=== PATIENT | male | born 1950 | race African-American/Black ===

== ENCOUNTER 2017-05-05 06:55 | Inpatient (IN) | payer OTHER ==
[2017-04-27 09:24] LABS: HEMATOCRIT 33.9 % (37.9-51.0); HEMOGLOBIN 11.4 g/dL (13.5-17.0); HGB HCT DIFFERENCE 0.3; MEAN CORPUSCULAR HEMOGLOBIN 30.3 pg (27.0-33.4); MEAN CORPUSCULAR HGB CONC 33.7 g/dL (32.0-36.0); MEAN CORPUSCULAR VOLUME 90 fl (80-97); RED BLOOD COUNT 3.78 10^6/uL (4.35-5.55); RED CELL DISTRIBUTION WIDTH 16.5 % (11.5-14.0); WHITE BLOOD COUNT 6.2 10^3/uL (4.0-10.5)
--- NOTE | 2017-04-27 09:32 | RADIOLOGY REPORT (SQ) ---
EXAM DESCRIPTION: CHEST PA/LATERAL COMPLETED DATE/TIME: 04/27/2017 9:16 am REASON FOR STUDY: PRE-OP COMPARISON: None. EXAM PARAMETERS: NUMBER OF VIEWS: two views TECHNIQUE: Digital Frontal and Lateral radiographic views of the chest acquired. RADIATION DOSE: NA LIMITATIONS: none FINDINGS: LUNGS AND PLEURA: No opacities, masses or pneumothorax. No pleural effusion. MEDIASTINUM AND HILAR STRUCTURES: No masses or contour abnormalities. HEART AND VASCULAR STRUCTURES: Heart normal size. No evidence for failure. BONES: No acute findings. HARDWARE: Clips right upper quadrant post cholecystectomy OTHER: No other significant finding. IMPRESSION: NO SIGNIFICANT RADIOGRAPHIC FINDING IN THE CHEST. TECHNICAL DOCUMENTATION: JOB ID: [id number] [employer]- All Rights Reserved
[2017-04-27 09:34] LABS: APPEARANCE,URINE CLOUDY; BILIRUBIN,URINE NEGATIVE (NEGATIVE); GLUCOSE, URINE NEGATIVE (NEGATIVE); KETONES,URINE NEGATIVE (NEGATIVE); LEUKOCYTE ESTERASE,URINE LARGE (NEGATIVE); NITRITE,URINE NEGATIVE (NEGATIVE); PROTEIN,URINE 100 mg/dL (NEGATIVE); URINE SPECIFIC GRAVITY 1.011; UROBILINOGEN,URINE NEGATIVE mg/dL (<2.0)
[2017-04-27 09:45] LABS: ANION GAP 19 (5-19); BLOOD UREA NITROGEN 41 mg/dL (7-20); CALCIUM 9.6 mg/dL (8.4-10.2); CARBON DIOXIDE 26 mmol/L (22-30); CHLORIDE 99 mmol/L (98-107); CREATININE RESULT 7.32 mg/dL (0.52-1.25); GLUCOSE 97 mg/dL (75-110); POTASSIUM 4.6 mmol/L (3.6-5.0); SODIUM 143.5 mmol/L (137-145)
--- NOTE | 2017-04-27 10:28 | EKG REPORT ---
SEVERITY:- NORMAL ECG - SINUS RHYTHM : Confirmed by: Jaylene Sanchez 27-Apr-2017 10:27:21
[~2017-05-05 06:55] MED LIST: BUPIVACAINE INJ/PF LIPOSOME/PF 266 MG/20 ML SDV IJ PRN; CLINDAMYCIN 600 MG/D5W RTU 600 MG/50 ML RTUPB IV PRN; IBUPROFEN 800 MG/NS 250 ML IV PRN; LANSOPRAZOLE 15 MG TAB.RAP.DR PO PRN; LIDOCAINE 0.5% INJ-PF (5 MG/ML) 50 ML SDV SUBCUT PRN; NORMAL SALINE 1000 ML (RENAL PATIENTS) IV PRN; OXYCODONE HCL SR 10 MG TABLET PO PRN; VANCOMYCIN HCL 1,000 MG in DEXTROSE 5%-WATER 250 ML IV PRN
[2017-05-05] MEDS ORDERED: THROMBIN (BOVINE) 5000 UNIT EPITAXIS KIT ONE (08:58)
[2017-05-05] MEDS ORDERED: THROMBIN (BOVINE) TOPICAL 20000 UNIT VIAL ONE (08:58)
[2017-05-05] MEDS ORDERED: BUPIVACAINE INJ/PF LIPOSOME/PF 266 MG/20 ML SDV ONE (08:58)
[2017-05-05] MEDS ORDERED: HYDROMORPHONE HCL INJ/PF 2 MG/ML AMPULE ONE (08:59)
[2017-05-05] MEDS ORDERED: MIDAZOLAM 2 MG/2 ML INJ ONE (08:59)
[2017-05-05] MEDS ORDERED: FENTANYL CITRATE INJ/PF 100 MCG/2 ML AMPUL ONE (08:59)
[2017-05-05] MEDS ORDERED: ONDANSETRON HCL INJ/PF 4 MG/2 ML SDV ONE (09:00)
[2017-05-05] MEDS ORDERED: TRANEXAMIC ACID INJ/PF 1,000 MG/10 ML SDV IV ONE ×2 (09:00→13:00)
[2017-05-05] MEDS ORDERED: EPHEDRINE SULFATE INJ 50 MG/1 ML AMPULE ONE (09:00)
[2017-05-05] MEDS ORDERED: PROPOFOL INJ 200 MG/20 ML VIAL IV ONE (09:00)
[2017-05-05] MEDS ORDERED: DIPHENHYDRAMINE HCL 50 MG/ML VIAL IV PRN ×2 (10:28→10:42)
[2017-05-05] MEDS ORDERED: FENTANYL CITRATE INJ/PF 100 MCG/2 ML AMPUL IV PRN ×3 (10:28)
[2017-05-05] MEDS ORDERED: MEPERIDINE HCL/PF INJ 25 MG/1 ML DISP.SYRIN IV PRN (10:28)
[2017-05-05] MEDS ORDERED: ONDANSETRON HCL INJ/PF 4 MG/2 ML SDV IV PRN (10:28)
[2017-05-05] MEDS ORDERED: (PENDING PHARMACY ID) (Sevelamer Carbonate [Renvela] 800 MG) PO PRN (10:41)
[2017-05-05] MEDS ORDERED: (PENDING PHARMACY ID) (Sildenafil Citrate [Viagra] 100 MG) PO PRN (10:41)
[2017-05-05] MEDS ORDERED: (PENDING PHARMACY ID) (Zolpidem Tartrate [Ambien] 10 MG) PO PRN (10:41)
--- NOTE | 2017-05-05 10:41 | Operative Report ---
Operative Report DATE OF SURGERY: 05/05/17 PREOPERATIVE DIAGNOSIS: Right hip arthritis OPERATION: Right hip arthroplasty SURGEON: NOAH HAMILTON ANESTHESIA: GA TISSUE REMOVED OR ALTERED: Bone to pathology ESTIMATED BLOOD LOSS: 100 PROCEDURE: Implants used: Femur: [place] Accolade 2 size 5 stem Acetabular shell: 56 mm hemispherical shell Liner: 36 mm flat cross-linked polyethylene liner Head: 36 mm chrome cobalt head standard neck The patient is placed in a left lateral decubitus position on the operating table. The right lower extremity and hindquarter is prepped and draped in a sterile fashion. A curvilinear incision was made over the greater trochanter a posterior approach the hip was taken. The femoral head is dislocated and the femoral neck transected using an oscillating saw. Attention was next turned to the acetabulum. Soft tissues cleared off the acetabulum using electrocautery. The acetabulum was then prepared using a series of hemispherical reamers until a 55 millimeters reamer is seated. Subsequently a 56 millimeters Zaheer titanium hemispherical shell is impacted into position and secured with one screw. A standard flat 36 millimeters cross- link liner is impacted into the shell. Attention was next turned to the femur. Access is gained to the femoral canal using a box osteotome to the piriformis fossa. The femur is then prepared using a series of broaches until a number 5 broach is seated. A trial reduction was now performed using a 36 millimeters head with standard neck. Preoperative leg length was recreated and is excellent anterior posterior stability. A decision was made to proceed with the above construct. All trial implants were removed. The wound is irrigated with pulsed lavage. A number 5 stem is impacted into the femoral canal. A trial reduction was again performed with a 36 mm head and a standard neck. Findings as previously. The hip was dislocated one last time and the final chrome-cobalt head is impacted onto the trunnion. The hip was reduced. Wound is copiously irrigated with pulsed lavage. Sent closed in layers using interrupted Vicryl followed by roopa. A sterile dressing is applied and the patient's returned to recovery room in satisfactory patient.
[2017-05-05] MEDS ORDERED: MORPHINE SULFATE 10 MG/ML INJ IM PRN (10:42)
[2017-05-05] MEDS ORDERED: MAG HYDROX/AL HYDROX/SIMETH SUSP 30 ML UDCUP PO PRN (10:42)
[2017-05-05] MEDS ORDERED: MORPHINE SULFATE 10 MG/ML INJ IV PRN ×3 (10:42)
[2017-05-05] MEDS ORDERED: RINGERS SOLUTION,LACTATED 1,000 ML IV PRN (10:42)
[2017-05-05] MEDS ORDERED: ZOLPIDEM TARTRATE 5 MG TABLET PO PRN ×2 (10:42→11:05)
[2017-05-05] MEDS ORDERED: DEXTROSE 40% GEL 15 GM TUBE PO PRN (11:21)
[2017-05-05] MEDS ORDERED: DEXTROSE 40% GEL 15 GM TUBE X 2 PO PRN (11:21)
[2017-05-05] MEDS ORDERED: DEXTROSE 50%-WATER SYRINGE 25 GM/50 ML DOSE IV PRN (11:21)
[2017-05-05] MEDS ORDERED: GLUCAGON,HUMAN RECOMB 1 MG INJ IM PRN (11:21)
[2017-05-05] MEDS ORDERED: DEXTROSE 50%-WATER SYRINGE 12.5 GM/25 ML DOSE IV PRN (11:21)
[2017-05-05] MEDS ORDERED: NEOSTIGMINE METHYLSULFATE 10 MG/10 ML VIAL ONE (11:56)
[2017-05-05] MEDS ORDERED: GLYCOPYRROLATE INJ 0.4 MG/2 ML VIAL ONE (11:56)
[2017-05-05] MEDS ORDERED: (PENDING PHARMACY ID) (Sevelamer Carbonate [Renvela] 1,600 MG) PO SCH (12:00)
--- NOTE | 2017-05-05 12:14 | RADIOLOGY REPORT (SQ) ---
EXAM DESCRIPTION: PELVIS AP portable COMPLETED DATE/TIME: 05/05/2017 11:13 am REASON FOR STUDY: Post Op Long Cassette in PACU COMPARISON: None. TECHNIQUE: Portable AP supine view of the pelvis. LIMITATIONS: None. FINDINGS: Patient is postop right hip arthroplasty, with hardware in place. No acute fractures iden tified. Some arthritic change noted of the left hip. No acute fractures. Arterial calcifications seen. IMPRESSION: Postoperative changes right hip pronounced teeth. TECHNICAL DOCUMENTATION: JOB ID: [id number] [employer]- All Rights Reserved
[2017-05-05] MEDS: SEVELAMER HCL 400 MG TABLET PO SCH ×2 (14:33→17:20)
[2017-05-05] MEDS: IBUPROFEN 800 MG in NORMAL SALINE 250 ML IV SCH (17:18)
[2017-05-05] MEDS: SENNOSIDES/DOCUSATE 8.6-50 MG 1 EACH TABLET PO SCH (17:20)
[2017-05-05] MEDS: AMLODIPINE BESYLATE 10 MG TABLET PO SCH (17:21)
[2017-05-05] MEDS: METOPROLOL SUCCINATE 50 MG TAB.SR.24H PO SCH (17:22)
[2017-05-05] MEDS: OXYCODONE HCL IR 5 MG TABLET PO PRN ×2 (17:25→23:52)
[2017-05-05] MEDS: ONDANSETRON HCL INJ/PF 4 MG/2 ML SDV IV PRN ×2 (17:38→23:52)
[2017-05-05] MEDS ORDERED: (PENDING PHARMACY ID) (Metoprolol Succinate [Toprol Xl 200 Mg Tablet] 200 MG) PO SCH (18:00)
[2017-05-05] MEDS ORDERED: (PENDING PHARMACY ID) (Mirabegron [Myrbetriq] 50 MG) PO SCH (18:00)
[2017-05-05] MEDS ORDERED: LANSOPRAZOLE 30 MG TAB.RAP.DR PO SCH (18:00)
--- NOTE | 2017-05-05 18:48 | PDOC CONSULTATION ---
Consultation Consult Date: 05/05/17 Consult reason:: ESRD for dialysis. History of Present Illness Admission Date/PCP: 05/05/17 06:55 KAREN HEARD NP History of Present Illness: RERE EDMONDSON is a 66 year old male with a h/o long standing complicated diabetes with retinopathy, neuropathy, gastroparesis/eneteropathy was admitted yesterday for right hip arthroplasty. He underwent a uneventful surgry and is currently being seen in his room. He had HD on Wednesday and Wednesday prior to surgery. he does not usually run high inter dialytic weight gains or have hyperkalemia as per ptn. Currently he id doing well. Denies any dyspnea , cheat pains. has some nausea whch he attributes to his chronic gastroparesis and maybe made worse by the anesthetic agents used for surgery today. Past Medical History Cardiac Medical History: Reports: Hypertension-primary, Myocardial Infarction - Denies: Atrial Fibrillation, Coronary Artery Disease, Heart Murmur, Hyperlipidemia, Peripheral Vascular Disease, Pulmonary Embolism Pulmonary Medical History: Reports: Bronchitis - 2004, Pneumonia - 2004, Sleep Apnea - uses CPAP Denies: Asthma, Chronic Obstructive Pulmonary Disease (COPD), Respiratory Failure, Tuberculosis Neurological Medical History: Denies: Seizures Endocrine Medical History: Reports: Diabetes Mellitus Type 2 Denies: Hyperthyroidism, Hypothyroidism Complications of Diabetes: Reports: Diabetic Foot Ulcer, Gastroparesis, Retinopathy Renal/ Medical History: Reports: Benign Prostatic Hyperplasia, End Stage Renal Disease, Renal Osteodystropy Malignancy Medical History: Denies: Leukemia, Lung Cancer GI Medical History: Reports: Gastroesophageal Reflux Disease Denies: Crohn's Disease, Hiatal Hernia Musculoskeltal Medical History: Reports: Arthritis Denies: Fibromyalgia, Rheumatoid Arthritis, Systemic Lupus Erythematosus Psychiatric Medical History: Reports: Depression Denies: Bipolar Disorder, Dementia, Post Traumatic Stress Disorder Infectious Medical History: Denies: HIV Hematology Medical History: Reports Anemia of Chronic Kidney Disease Past Surgical History Past Surgical History: Reports: Appendectomy, Cholecystectomy Denies: Colostomy, Coronary Artery Bypass Graft, Gastric Bypass Surgery, Herniorrhaphy, Pacemaker, Tonsillectomy Social History Smoking Status: Current Every Day Smoker Cigarettes Packs Per Day: 0.3 Hx Recreational Drug Use: Yes - 6 years ago/ none now Hx Prescription Drug Abuse: No - Advance Directive Resuscitation Status: Full Code Family History Parental Family History Reviewed: Yes - negative for esrd Children Family History Reviewed: Yes - negative for ckd Sibling(s) Family History Reviewed.: Yes - negative for ckd.pos for dm Medication/Allergy Home Medications: Amlodipine Besylate [Norvasc 10 mg Tablet] 10 mg PO QPM 05/05/17 Ammonium Lactate 1 applic TOP DAILY 05/05/17 Aspirin/Caffeine [Lina Back & Body Caplet] 1 tab PO QPM 05/05/17 Doxazosin Mesylate [Cardura 4 mg Tablet] 4 mg PO DAILY 05/05/17 Esomeprazole Magnesium [Nexium] 40 mg PO QPM 05/05/17 Fluticasone Propionate [Allergy Relief] 2 spray NASL DAILYP PRN 05/05/17 Folic Acid/Vitamin B Comp W-C [Nephrocaps Multiple Vitamin Capsule] 1 cap PO DAILY 05/05/17 Gabapentin [Neurontin 300 mg Capsule] 300 mg PO Q12 05/05/17 Insulin Glargine,Hum.rec.anlog [Lantus] 10 unit SUBCUT QPM PRN 05/05/17 Metoprolol Succinate [Toprol XL 200 mg Tablet] 200 mg PO QPM 05/05/17 Mirabegron [Myrbetriq] 50 mg PO QPM 05/05/17 Multivitamin [Daily Multiple Vitamin] 1 tab PO DAILY 05/05/17 Polyvinyl Alcohol [Artificial Tears] 1 drop OU TID 05/05/17 Sevelamer Carbonate [Renvela] 1,600 mg PO MEALS 05/05/17 Sevelamer Carbonate [Renvela] 800 mg PO PRN PRN 05/05/17 Sildenafil Citrate [Viagra] 100 mg PO PRN PRN 05/05/17 Zolpidem Tartrate [Ambien] 10 mg PO HSP PRN 05/05/17 Allergies/Adverse Reactions: Penicillins Allergy (Verified 02/10/17 16:10) Pt Unsure Review of Systems Constitutional: ABSENT: fatigue, fever(s), headache(s), night sweats, weakness, weight loss Nose, Mouth, and Throat: ABSENT: mouth pain, sore throat Cardiovascular: ABSENT: dyspnea on exertion, edema, orthropnea, palpitations Gastrointestinal: PRESENT: nausea. ABSENT: abdominal pain, coffee ground emesis , diarrhea, dysphagia, heartburn, hematemesis, hematochezia, melena Genitourinary: ABSENT: dysuria, hematuria - very little residual urine Neurological: ABSENT: confusion, convulsions, focal weakness Hematologic/Lymphatic: ABSENT: easy bruising, lymphadenopathy Physical Exam Vital Signs: Temp Pulse Resp BP Pulse Ox 97.3 F 91 18 163/59 H 100 05/05/17 17:20 05/05/17 17:20 05/05/17 17:20 05/05/17 17:20 05/05/17 17:20 Intake & Output 05/04/17 05/05/17 05/06/17 06:59 06:59 06:59 Intake Total 2700 Output Total 2049 Balance 650 General appearance: PRESENT: no acute distress Eye exam: PRESENT: conjunctiva pink, EOMI, PERRLA. ABSENT: nystagmus Ear exam: PRESENT: normal external ear exam Mouth exam: PRESENT: moist, neck supple Neck exam: ABSENT: lymphadenopathy, meningismus, tenderness, thyromegaly, tracheal deviation Respiratory exam: PRESENT: clear to auscultation holger. ABSENT: crackles, rhonchi Cardiovascular exam: PRESENT: +S1, +S2 GI/Abdominal exam: PRESENT: normal bowel sounds, soft. ABSENT: organomegaly, tenderness Extremities exam: ABSENT: pedal edema Neurological exam: PRESENT: alert, awake, oriented to person, oriented to place , oriented to time Skin exam: ABSENT: erythema, mottled Results Laboratory Results: 04/27/17 08:35 05/05/17 08:12 05/05/17 05/05/17 05/05/17 07: 07: 08:12 Potassium Cancelled 4.2 Blood Type B POSITIVE Antibody Screen NEGATIVE Impressions: Chest X-Ray 04/27/17 08:55 IMPRESSION: NO SIGNIFICANT RADIOGRAPHIC FINDING IN THE CHEST. Pelvis X-Ray 05/05/17 10:43 IMPRESSION: Postoperative changes right hip pronounced teeth. Assessment & Plan - Diagnosis (1) ESRD (end stage renal disease) on dialysis Plan: He was dialysed on wednesday and wednesday at [place] as part of pre operative preparation. Lytes and fluid status are currently stable and no indication for emergent dialysis. I will re assess him again tomorrow for any indication for HD and in most probablity he will be dialysed on wednesday. (2) Diabetes 1.5, managed as type 2 Plan: stable.lytes stable.no fluid issues.Next HD most likely on wednesday.Monitor clinically and with labs in AM. (3) Hypertension Plan: uncontrolled.he is having nausea .Monitor.Give home meds and will see response. (4) Hip joint replacement status Plan: Doing well post r hip arthroplasty.
[2017-05-05] MEDS: ONDANSETRON 4 MG TAB.RAPDIS PO PRN (20:27)
[2017-05-05] MEDS: RIVAROXABAN 10 MG TABLET PO SCH (21:56)
[2017-05-05] MEDS: OXYCODONE HCL SR 10 MG TABLET PO SCH (21:57)
[2017-05-05] MEDS: GABAPENTIN 300 MG CAPSULE PO SCH (22:02)
[2017-05-05] MEDS ORDERED: VANCOMYCIN HCL 1,000 MG in DEXTROSE 5%-WATER 250 ML IV ONE (22:40)
[2017-05-06] MEDS: IBUPROFEN 800 MG in NORMAL SALINE 250 ML IV SCH ×3 (02:54→17:51)
[2017-05-06 05:34] LABS: HEMATOCRIT 23.3 % (37.9-51.0); HEMOGLOBIN 8.2 g/dL (13.5-17.0); HGB HCT DIFFERENCE 1.3; MEAN CORPUSCULAR VOLUME 89 fl (80-97); RED BLOOD COUNT 2.63 10^6/uL (4.35-5.55); WHITE BLOOD COUNT 8.9 10^3/uL (4.0-10.5)
[2017-05-06] MEDS: LANSOPRAZOLE 30 MG TAB.RAP.DR PO SCH (05:45)
[2017-05-06 05:50] LABS: ANION GAP 14 (5-19); BLOOD UREA NITROGEN 42 mg/dL (7-20); CALCIUM 9.2 mg/dL (8.4-10.2); CARBON DIOXIDE 24 mmol/L (22-30); CHLORIDE 100 mmol/L (98-107); CREATININE RESULT 7.72 mg/dL (0.52-1.25); GLUCOSE 115 mg/dL (75-110); POTASSIUM 4.6 mmol/L (3.6-5.0); SODIUM 138.4 mmol/L (137-145)
--- NOTE | 2017-05-06 07:21 | PDOC PROGRESS REPORT ---
Subjective Progress Note for:: 05/06/17 Subjective:: Patient with minor complaints of pain. Physical Exam Vital Signs: Temp Pulse Resp BP Pulse Ox 36.8 C 79 17 123/53 L 99 05/06/17 04:52 05/06/17 04:52 05/06/17 04:52 05/06/17 04:52 05/06/17 04:52 Intake & Output 05/05/17 05/06/17 05/07/17 06:59 06:59 06:59 Intake Total 3700 Output Total 2550 Balance 1150 General appearance: PRESENT: mild distress Head exam: PRESENT: normocephalic Respiratory exam: PRESENT: unlabored Cardiovascular exam: PRESENT: RRR Pulses: PRESENT: +1 pedal pulses bilateral Vascular exam: PRESENT: normal capillary refill GI/Abdominal exam: PRESENT: soft Extremities exam: PRESENT: other - Dressing with a considerable amount of bloody drainage. This is removed and picot dressing underneath it is changed. Leg lengths are equal. Distal neurovascular examination is intact. Neurological exam: PRESENT: alert, awake, oriented to person, oriented to place , oriented to time, oriented to situation, CN II-XII grossly intact. ABSENT: motor sensory deficit Psychiatric exam: PRESENT: appropriate affect, normal mood. ABSENT: homicidal ideation, suicidal ideation Skin exam: PRESENT: dry, intact, warm. ABSENT: cyanosis, rash Results Laboratory Results: 05/06/17 05:14 05/06/17 05:14 05/05/17 05/05/17 05/05/17 07:17 07:17 08:12 WBC RBC Hgb Hct MCV MCH MCHC RDW Plt Count Sodium Potassium Cancelled 4.2 Chloride Carbon Dioxide Anion Gap BUN Creatinine Est GFR ( Amer) Est GFR (Non-Af Amer) Glucose Calcium Blood Type B POSITIVE Antibody Screen NEGATIVE 05/06/17 05/06/17 05:14 05:14 WBC 8.9 RBC 2.63 L Hgb 8.2 L Hct 23.3 L MCV 89 MCH 31.0 MCHC 35.0 RDW 15.0 H Plt Count 104 L Sodium 138.4 Potassium 4.6 Chloride 100 Carbon Dioxide 24 Anion Gap 14 BUN 42 H Creatinine 7.72 H Est GFR ( Amer) 9 L Est GFR (Non-Af Amer) 7 L Glucose 115 H Calcium 9.2 Blood Type Antibody Screen Impressions: Chest X-Ray 04/27/17 08:55 IMPRESSION: NO SIGNIFICANT RADIOGRAPHIC FINDING IN THE CHEST. Pelvis X-Ray 05/05/17 10:43 IMPRESSION: Postoperative changes right hip pronounced teeth. Status: Imported from PACS Assessment & Plan - Diagnosis (1) Hip joint replacement status Is this a current diagnosis for this admission?: YesPlan: 66-year-old black male status post right hip arthroplasty yesterday. Hematocrit is dipped to 23.3%. Blood glucoses varied between 141 and 235. Progress with physical therapy is fairly limited. There is a need for dialysis on Wednesday? - Time Time Spent with patient: 15-24 minutes Anticipated discharge: Home with Homehealth Within: Other
[2017-05-06] MEDS: SEVELAMER HCL 400 MG TABLET PO SCH ×3 (08:52→17:51)
[2017-05-06] MEDS: PRENATAL VITAMIN W-O CA NO5/FE FUMARATE/FA CAPSULE PO SCH (09:56)
[2017-05-06] MEDS: SENNOSIDES/DOCUSATE 8.6-50 MG 1 EACH TABLET PO SCH ×2 (09:57→17:54)
[2017-05-06] MEDS: OXYCODONE HCL IR 5 MG TABLET PO PRN (09:57)
[2017-05-06] MEDS: GABAPENTIN 300 MG CAPSULE PO SCH ×2 (09:58→22:45)
[2017-05-06] MEDS: AMMONIUM LACTATE 12% LOTION 225GM BOTTLE TP SCH (09:59)
[2017-05-06] MEDS ORDERED: AMMONIUM LACTATE TOP SCH (10:00)
[2017-05-06] MEDS ORDERED: DOXAZOSIN MESYLATE 4 MG TABLET PO SCH ×2 (10:00→14:26)
[2017-05-06] MEDS: ONDANSETRON HCL INJ/PF 4 MG/2 ML SDV IV PRN (10:16)
[2017-05-06] MEDS ORDERED: ZOLPIDEM TARTRATE 5 MG TABLET PO PRN (10:41)
[2017-05-06] MEDS ORDERED: MAG HYDROX/AL HYDROX/SIMETH SUSP 30 ML UDCUP PO PRN (10:42)
[2017-05-06] MEDS: OXYCODONE HCL SR 10 MG TABLET PO SCH ×2 (11:50→22:45)
[2017-05-06] MEDS ORDERED: METOCLOPRAMIDE HCL INJ/PF 10 MG/2 ML SDV IV ONE (14:30)
--- NOTE | 2017-05-06 14:53 | PDOC PROGRESS REPORT ---
Subjective Progress Note for:: 05/06/17 Subjective:: Seen this AM. Doing well. Denies chest pains, dyspnea. Note high fluids iv on IV Ibuprofen.Labs and meds reviewed. Physical Exam Vital Signs: Temp Pulse Resp BP Pulse Ox 98.4 F 82 16 132/49 H 100 05/06/17 11:00 05/06/17 11:00 05/06/17 11:00 05/06/17 11:00 05/06/17 11:00 Intake & Output 05/05/17 05/06/17 05/07/17 06:59 06:59 06:59 Intake Total 3700 300 Output Total 2550 Balance 1150 300 General appearance: PRESENT: no acute distress Respiratory exam: PRESENT: clear to auscultation holger. ABSENT: crackles, rhonchi Cardiovascular exam: PRESENT: +S1, +S2 GI/Abdominal exam: PRESENT: normal bowel sounds, soft. ABSENT: organomegaly, tenderness Results Laboratory Results: 05/06/17 05:14 05/06/17 05:14 05/06/17 05/06/17 05:14 05:14 WBC 8.9 RBC 2.63 L Hgb 8.2 L Hct 23.3 L MCV 89 MCH 31.0 MCHC 35.0 RDW 15.0 H Plt Count 104 L Sodium 138.4 Potassium 4.6 Chloride 100 Carbon Dioxide 24 Anion Gap 14 BUN 42 H Creatinine 7.72 H Est GFR ( Amer) 9 L Est GFR (Non-Af Amer) 7 L Glucose 115 H Calcium 9.2 Impressions: Chest X-Ray 04/27/17 08:55 IMPRESSION: NO SIGNIFICANT RADIOGRAPHIC FINDING IN THE CHEST. Pelvis X-Ray 05/05/17 10:43 IMPRESSION: Postoperative changes right hip pronounced teeth. Assessment & Plan - Diagnosis (1) ESRD (end stage renal disease) on dialysis Plan: No indications for HD for today.Plan HD in AM and orders placed.Meanwhile stop high IVF.Administer lasix 40 mg x 1. Discussed with Georgina GRIFFITH. (2) Diabetes 1.5, managed as type 2 Plan: stable. (3) Hypertension Plan: controlled.he is having nausea .Monitor. (4) Hip joint replacement status Is this a current diagnosis for this admission?: Yes
[2017-05-06] MEDS ORDERED: FUROSEMIDE INJ/PF 40 MG/4 ML SDV IV ONE (15:00)
[2017-05-06] MEDS: METOPROLOL SUCCINATE 50 MG TAB.SR.24H PO SCH (17:53)
[2017-05-06] MEDS: AMLODIPINE BESYLATE 10 MG TABLET PO SCH (17:54)
[2017-05-06] MEDS: RIVAROXABAN 10 MG TABLET PO SCH (22:36)
[2017-05-06] MEDS: METOCLOPRAMIDE HCL INJ/PF 10 MG/2 ML SDV IV SCH (22:37)
[2017-05-06] MEDS: INSULIN GLARGINE,HUM.REC.ANLOG 1,000 UNIT/10 ML UNIT SUBCUT PRN (23:30)
[2017-05-07] MEDS ORDERED: EPOETIN ALFA INJ 20000 UNIT/1 ML VIAL (RENAL) IV PRN (05:00)
[2017-05-07 05:50] LABS: HGB HCT DIFFERENCE 0.8; MEAN CORPUSCULAR HEMOGLOBIN 30.2 pg (27.0-33.4); MEAN CORPUSCULAR HGB CONC 34.3 g/dL (32.0-36.0); MEAN CORPUSCULAR VOLUME 88 fl (80-97); RED CELL DISTRIBUTION WIDTH 15.1 % (11.5-14.0); WHITE BLOOD COUNT 8.8 10^3/uL (4.0-10.5)
[2017-05-07] MEDS: METOCLOPRAMIDE HCL INJ/PF 10 MG/2 ML SDV IV SCH ×3 (05:59→21:14)
[2017-05-07] MEDS: LANSOPRAZOLE 30 MG TAB.RAP.DR PO SCH (05:59)
[2017-05-07 06:07] LABS: ANION GAP 14 (5-19); BLOOD UREA NITROGEN 54 mg/dL (7-20); CALCIUM 9.5 mg/dL (8.4-10.2); CARBON DIOXIDE 25 mmol/L (22-30); CHLORIDE 98 mmol/L (98-107); CREATININE RESULT 9.85 mg/dL (0.52-1.25); GLUCOSE 122 mg/dL (75-110); HEMOGLOBIN 7.6 g/dL (13.5-17.0); POTASSIUM 4.7 mmol/L (3.6-5.0)
[2017-05-07] MEDS: OXYCODONE HCL IR 5 MG TABLET PO PRN (06:16)
--- NOTE | 2017-05-07 06:52 | PDOC PROGRESS REPORT ---
Subjective Progress Note for:: 05/07/17 Subjective:: Patient reports minimal pain Physical Exam Vital Signs: Temp Pulse Resp BP Pulse Ox 37.2 C 86 18 148/58 H 99 05/06/17 23:35 05/06/17 23:35 05/06/17 23:35 05/06/17 23:35 05/06/17 23:35 Intake & Output 05/05/17 05/06/17 05/07/17 06:59 06:59 06:59 Intake Total 3700 1306 Output Total 2550 600 Balance 1150 706 Weight 101.15 kg General appearance: PRESENT: no acute distress Head exam: PRESENT: normocephalic Respiratory exam: PRESENT: unlabored Pulses: PRESENT: +1 pedal pulses bilateral Vascular exam: PRESENT: normal capillary refill GI/Abdominal exam: PRESENT: soft Rectal exam: PRESENT: deferred Extremities exam: PRESENT: other - Hip picot dressing remains clean dry and intact. Leg lengths are equal. Distal neurovascular examination is intact Neurological exam: PRESENT: alert, awake, oriented to person, oriented to place , oriented to time, oriented to situation. ABSENT: motor sensory deficit Psychiatric exam: PRESENT: appropriate affect, normal mood. ABSENT: homicidal ideation, suicidal ideation Skin exam: PRESENT: dry, intact, warm. ABSENT: cyanosis, rash Results Laboratory Results: 05/07/17 05:01 05/07/17 05:01 05/07/17 05/07/17 05:01 05:01 WBC 8.8 RBC 2.50 L Hgb 7.6 L Hct 22.0 L MCV 88 MCH 30.2 MCHC 34.3 RDW 15.1 H Plt Count 105 L Sodium 137.0 Potassium 4.7 Chloride 98 Carbon Dioxide 25 Anion Gap 14 BUN 54 H Creatinine 9.85 H Est GFR ( Amer) 6 L Est GFR (Non-Af Amer) 5 L Glucose 122 H Calcium 9.5 Impressions: Chest X-Ray 04/27/17 08:55 IMPRESSION: NO SIGNIFICANT RADIOGRAPHIC FINDING IN THE CHEST. Pelvis X-Ray 05/05/17 10:43 IMPRESSION: Postoperative changes right hip pronounced teeth. Status: Imported from PACS Assessment & Plan - Diagnosis (1) Hip joint replacement status Is this a current diagnosis for this admission?: YesPlan: 66-year-old black male postop day 2 from right hip arthroplasty with an excellent postoperative course. The patient ambulated 200 feet yesterday with physical therapy. His hematocrit has dropped to 22%. He is scheduled for dialysis today. If Dr. Castelan feels that blood transfusion is appropriate that can be done during dialysis. We will continue with physical therapy and anticipate discharge home on Wednesday. - Time Time Spent with patient: 15-24 minutes Anticipated discharge: Home with Homehealth Within: - Wednesday
[2017-05-07] MEDS: SEVELAMER HCL 400 MG TABLET PO SCH ×3 (07:44→17:39)
--- NOTE | 2017-05-07 09:49 | PDOC PROGRESS REPORT ---
Subjective Progress Note for:: 05/07/17 Subjective:: Seen on dialysis today. Doing well. No more nausea / vomiting and tolerating metoclopropamide. He has ambulated in the corridors with PT and is happy with his progress post op. No chest pains, dyspnea. N fever or chills. No orthostasis. No symptoms of any GI bleeds. Physical Exam Vital Signs: Temp Pulse Resp BP Pulse Ox 99.0 F 86 18 148/58 H 99 05/06/17 23:35 05/06/17 23:35 05/06/17 23:35 05/06/17 23:35 05/06/17 23:35 Intake & Output 05/06/17 05/07/17 05/08/17 06:59 06:59 06:59 Intake Total 3700 1306 Output Total 2550 600 Balance 1150 706 Weight 101.15 kg General appearance: PRESENT: no acute distress Respiratory exam: PRESENT: clear to auscultation holger. ABSENT: crackles, rhonchi Cardiovascular exam: PRESENT: +S1, +S2 GI/Abdominal exam: PRESENT: normal bowel sounds, soft. ABSENT: organomegaly, tenderness Extremities exam: PRESENT: pedal edema - trace+ Neurological exam: PRESENT: alert, awake, oriented to person, oriented to place , oriented to time Results Laboratory Results: 05/07/17 05:01 05/07/17 05:01 05/07/17 05/07/17 05:01 05:01 WBC 8.8 RBC 2.50 L Hgb 7.6 L Hct 22.0 L MCV 88 MCH 30.2 MCHC 34.3 RDW 15.1 H Plt Count 105 L Sodium 137.0 Potassium 4.7 Chloride 98 Carbon Dioxide 25 Anion Gap 14 BUN 54 H Creatinine 9.85 H Est GFR ( Amer) 6 L Est GFR (Non-Af Amer) 5 L Glucose 122 H Calcium 9.5 Impressions: Chest X-Ray 04/27/17 08:55 IMPRESSION: NO SIGNIFICANT RADIOGRAPHIC FINDING IN THE CHEST. Pelvis X-Ray 05/05/17 10:43 IMPRESSION: Postoperative changes right hip pronounced teeth. Assessment & Plan - Diagnosis (1) ESRD (end stage renal disease) on dialysis Plan: He is undergoing dialysis without any issues. Its being supervised to ensure safe and smooth procedure. Hemodynamically stable. Plan to UF approx 3-4 L as tolerated. Labs reviewed with him and RN. Note lowish Hb but hopefully should correct higher post HD. He is on a no Heparin HD. No indications for Transfusion now and I would wait to see tomorrows labs to decide on need to transfuse. Orders were discusssed with treating RN. (2) Diabetes 1.5, managed as type 2 Plan: stable. (3) Hypertension Plan: controlled.he is having nausea .Monitor. (4) Hip joint replacement status Is this a current diagnosis for this admission?: YesPlan: Doing well post r hip arthroplasty. (5) Anemia Qualifiers: Anemia type: unspecified type Qualified Code(s): D64.9 - Anemia, unspecified Plan: Post op drop in Hb. Will give EPO today. No indication for transfusion now. Will see tomorrows labs to decide on transfusion as I expect certain correction of Hb to a higher number post HD. No symptoms to indicate GI bleed. (6) Diabetic gastroparalysis Plan: Seems to have responded to the pro kinetic agent. I am going to dc that as of wednesday.
[2017-05-07] MEDS: PRENATAL VITAMIN W-O CA NO5/FE FUMARATE/FA CAPSULE PO SCH (10:45)
[2017-05-07] MEDS: SENNOSIDES/DOCUSATE 8.6-50 MG 1 EACH TABLET PO SCH ×2 (10:45→17:38)
[2017-05-07] MEDS: OXYCODONE HCL SR 10 MG TABLET PO SCH (10:45)
[2017-05-07] MEDS: GABAPENTIN 300 MG CAPSULE PO SCH ×2 (10:45→21:15)
[2017-05-07] MEDS: DOXAZOSIN MESYLATE 4 MG TABLET PO SCH (10:47)
[2017-05-07] MEDS: AMMONIUM LACTATE 12% LOTION 225GM BOTTLE TP SCH (13:56)
[2017-05-07] MEDS: AMLODIPINE BESYLATE 10 MG TABLET PO SCH (17:38)
[2017-05-07] MEDS: METOPROLOL SUCCINATE 50 MG TAB.SR.24H PO SCH (17:39)
[2017-05-07] MEDS: ACETAMINOPHEN 325 MG TABLET PO PRN (20:49)
[2017-05-07] MEDS: RIVAROXABAN 10 MG TABLET PO SCH (21:15)
[2017-05-07] MEDS: INSULIN GLARGINE,HUM.REC.ANLOG 1,000 UNIT/10 ML UNIT SUBCUT PRN (22:00)
[2017-05-08 05:20] LABS: HEMATOCRIT 22.2 % (37.9-51.0); HGB HCT DIFFERENCE 0.6; MEAN CORPUSCULAR HEMOGLOBIN 30.1 pg (27.0-33.4); MEAN CORPUSCULAR HGB CONC 34.3 g/dL (32.0-36.0); MEAN CORPUSCULAR VOLUME 88 fl (80-97); RED BLOOD COUNT 2.53 10^6/uL (4.35-5.55); RED CELL DISTRIBUTION WIDTH 15.2 % (11.5-14.0); WHITE BLOOD COUNT 8.3 10^3/uL (4.0-10.5)
[2017-05-08 05:24] LABS: HEMOGLOBIN 7.6 g/dL (13.5-17.0)
[2017-05-08] MEDS: LANSOPRAZOLE 30 MG TAB.RAP.DR PO SCH (05:34)
[2017-05-08] MEDS: METOCLOPRAMIDE HCL INJ/PF 10 MG/2 ML SDV IV SCH ×2 (05:34→13:39)
[2017-05-08] MEDS: INSULIN LISPRO 100 UNIT/ML 3 ML VIAL SUBCUT PRN ×2 (08:22→18:19)
[2017-05-08] MEDS: SEVELAMER HCL 400 MG TABLET PO SCH ×3 (08:22→17:27)
[2017-05-08] MEDS ORDERED: DIPHENHYDRAMINE HCL 25 MG CAPSULE PO PRN (09:38)
[2017-05-08] MEDS ORDERED: FUROSEMIDE INJ/PF 40 MG/4 ML SDV IV PRN (09:38)
[2017-05-08] MEDS ORDERED: NORMAL SALINE 250 ML IV PRN ×2 (09:38)
[2017-05-08] MEDS: AMMONIUM LACTATE 12% LOTION 225GM BOTTLE TP SCH (10:03)
[2017-05-08] MEDS: PRENATAL VITAMIN W-O CA NO5/FE FUMARATE/FA CAPSULE PO SCH (10:04)
[2017-05-08] MEDS: DOXAZOSIN MESYLATE 4 MG TABLET PO SCH (10:04)
[2017-05-08] MEDS: SENNOSIDES/DOCUSATE 8.6-50 MG 1 EACH TABLET PO SCH ×2 (10:04→17:27)
[2017-05-08] MEDS: GABAPENTIN 300 MG CAPSULE PO SCH ×2 (10:04→22:19)
[2017-05-08] MEDS: OXYCODONE HCL IR 5 MG TABLET PO PRN (11:32)
--- NOTE | 2017-05-08 13:25 | PDOC PROGRESS REPORT ---
Subjective Progress Note for:: 05/08/17 Subjective:: Patient seen this morning in the hospital. He is doing well. He had his dialysis yesterday and in spite of appropriate ultrafiltration this morning's lab shows his hemoglobin low at 7.6. Patient is asymptomatic. He denies any history to indicate GI bleeds. He is not orthostatic. Physical Exam Vital Signs: Temp Pulse Resp BP Pulse Ox 99.5 F 82 17 123/45 L 98 05/08/17 12:14 05/08/17 12:14 05/08/17 12:14 05/08/17 12:14 05/08/17 12:14 Intake & Output 05/07/17 05/08/17 05/09/17 06:59 06:59 06:59 Intake Total 1306 490 0 Output Total 600 3000 Balance 706 -2510 0 Weight 101.15 kg 101.15 kg General appearance: PRESENT: no acute distress Respiratory exam: PRESENT: clear to auscultation holger. ABSENT: crackles, rhonchi Cardiovascular exam: PRESENT: +S1, +S2 GI/Abdominal exam: PRESENT: normal bowel sounds, soft. ABSENT: organomegaly, tenderness Extremities exam: ABSENT: pedal edema Neurological exam: PRESENT: alert, awake, oriented to person, oriented to place , oriented to time Results Laboratory Results: 05/08/17 05:01 05/07/17 05:01 05/08/17 05/08/17 05:01 10:38 WBC 8.3 RBC 2.53 L Hgb 7.6 L Hct 22.2 L MCV 88 MCH 30.1 MCHC 34.3 RDW 15.2 H Plt Count 118 L Blood Type B POSITIVE Antibody Screen NEGATIVE Impressions: Chest X-Ray 04/27/17 08:55 IMPRESSION: NO SIGNIFICANT RADIOGRAPHIC FINDING IN THE CHEST. Pelvis X-Ray 05/05/17 10:43 IMPRESSION: Postoperative changes right hip pronounced teeth. Assessment & Plan - Diagnosis (1) ESRD (end stage renal disease) on dialysis Plan: Patient status post hemodialysis yesterday which was uneventful. He is doing well. Elect lites are stable. Next dialysis for Wednesday. (2) Diabetes 1.5, managed as type 2 Plan: stable. (3) Hypertension Plan: Stable. (4) Hip joint replacement status Is this a current diagnosis for this admission?: YesPlan: Doing well post r hip arthroplasty. (5) Anemia Qualifiers: Anemia type: unspecified type Qualified Code(s): D64.9 - Anemia, unspecified Plan: Patient's hemoglobin is 7.6. Plan to transfuse 1 unit and orders were discussed with the treating nurse. Orders placed for type and crossmatch. Appropriate. [place] transfusion orders have been placed as well
[2017-05-08] MEDS: AMLODIPINE BESYLATE 10 MG TABLET PO SCH (17:27)
[2017-05-08] MEDS: METOPROLOL SUCCINATE 50 MG TAB.SR.24H PO SCH (17:27)
[2017-05-08 18:37] LABS: ABSOLUTE BASOPHILS # (AUTO) 0.1 10^3/uL (0.0-0.2); ABSOLUTE EOSINOPHILS # (AUTO) 0.2 10^3/uL (0.0-0.6); ABSOLUTE MONOCYTES (AUTO) 0.7 10^3/uL (0.1-1.4); ABSOLUTE NEUT (AUTO) 5.9 10^3/uL (1.7-8.2); BASOPHILS % (AUTO) 0.6 % (0-2); EOSINOPHILS % (AUTO) 2.2 % (0-6); HEMATOCRIT 27.3 % (37.9-51.0); HEMOGLOBIN 9.2 g/dL (13.5-17.0); HGB HCT DIFFERENCE 0.3; LYMPHOCYTES % (AUTO) 22.6 % (13-45); MEAN CORPUSCULAR HEMOGLOBIN 30.3 pg (27.0-33.4); MEAN CORPUSCULAR HGB CONC 33.9 g/dL (32.0-36.0); MEAN CORPUSCULAR VOLUME 89 fl (80-97); MONOCYTES % (AUTO) 7.7 % (3-13); RED BLOOD COUNT 3.05 10^6/uL (4.35-5.55); RED CELL DISTRIBUTION WIDTH 15.4 % (11.5-14.0); SEGMENTED NEUTROPHILS % (AUTO) 66.9 % (42-78); WHITE BLOOD COUNT 8.8 10^3/uL (4.0-10.5)
[2017-05-08] MEDS: RIVAROXABAN 10 MG TABLET PO SCH (22:19)
[2017-05-08] MEDS: INSULIN GLARGINE,HUM.REC.ANLOG 1,000 UNIT/10 ML UNIT SUBCUT PRN (22:30)
[2017-05-09 05:12] LABS: HEMATOCRIT 27.2 % (37.9-51.0); HEMOGLOBIN 9.2 g/dL (13.5-17.0); HGB HCT DIFFERENCE 0.4; MEAN CORPUSCULAR HEMOGLOBIN 30.4 pg (27.0-33.4); MEAN CORPUSCULAR HGB CONC 33.9 g/dL (32.0-36.0); MEAN CORPUSCULAR VOLUME 90 fl (80-97); RED BLOOD COUNT 3.03 10^6/uL (4.35-5.55); RED CELL DISTRIBUTION WIDTH 15.2 % (11.5-14.0); WHITE BLOOD COUNT 9.6 10^3/uL (4.0-10.5)
[2017-05-09 05:30] LABS: ANION GAP 15 (5-19); BLOOD UREA NITROGEN 44 mg/dL (7-20); CALCIUM 9.2 mg/dL (8.4-10.2); CARBON DIOXIDE 26 mmol/L (22-30); CHLORIDE 94 mmol/L (98-107); CREATININE RESULT 9.35 mg/dL (0.52-1.25); GLUCOSE 155 mg/dL (75-110); POTASSIUM 4.6 mmol/L (3.6-5.0); SODIUM 134.5 mmol/L (137-145)
[2017-05-09] MEDS: LANSOPRAZOLE 30 MG TAB.RAP.DR PO SCH (06:02)
[2017-05-09] MEDS: SEVELAMER HCL 400 MG TABLET PO SCH ×3 (07:48→17:13)
[2017-05-09] MEDS ORDERED: NA PHOS,M-B/NA PHOS,DI-BA (ADULT) 133 ML ENEMA PR PRN (08:26)
[2017-05-09] MEDS ORDERED: BISACODYL 10 MG SUPP.RECT PR ONE (09:00)
[2017-05-09] MEDS ORDERED: MAGNESIUM HYDROXIDE SUSP 30 ML UDCUP PO PRN (09:00)
[2017-05-09] MEDS: SENNOSIDES/DOCUSATE 8.6-50 MG 1 EACH TABLET PO SCH ×2 (09:52→17:13)
[2017-05-09] MEDS: DOXAZOSIN MESYLATE 4 MG TABLET PO SCH (09:52)
[2017-05-09] MEDS: PRENATAL VITAMIN W-O CA NO5/FE FUMARATE/FA CAPSULE PO SCH (09:52)
[2017-05-09] MEDS: GABAPENTIN 300 MG CAPSULE PO SCH ×2 (09:52→22:02)
[2017-05-09] MEDS: AMMONIUM LACTATE 12% LOTION 225GM BOTTLE TP SCH (09:52)
--- NOTE | 2017-05-09 16:31 | PDOC PROGRESS REPORT ---
Subjective Progress Note for:: 05/08/17 Subjective:: Patient currently ambulating in the hallway with physical therapy. Pain well controlled. Patient plan to receive 1 unit of of blood transfusion for low hematocrit Physical Exam Vital Signs: Temp Pulse Resp BP Pulse Ox 37.1 C 84 12 141/58 H 98 05/09/17 15:16 05/09/17 15:16 05/09/17 15:16 05/09/17 15:16 05/09/17 15:16 Intake & Output 05/08/17 05/09/17 05/10/17 06:59 06:59 06:59 Intake Total 490 1835 792 Output Total 3000 0 700 Balance -2510 1835 92 Weight 101.15 kg Adult Front & Back Image: 1 - Dressing with spotting but overall dry clean and intact. Limb lengths are grossly equal with normal neurovascular status distally. Results Laboratory Results: 05/09/17 04:55 05/09/17 04:55 05/08/17 05/08/17 05/09/17 10:38 18:20 04:55 WBC 8.8 9.6 RBC 3.05 L 3.03 L Hgb 9.2 L 9.2 L Hct 27.3 L 27.2 L MCV 89 90 MCH 30.3 30.4 MCHC 33.9 33.9 RDW 15.4 H 15.2 H Plt Count 126 L 106 L Seg Neutrophils % 66.9 Lymphocytes % 22.6 Monocytes % 7.7 Eosinophils % 2.2 Basophils % 0.6 Absolute Neutrophils 5.9 Absolute Lymphocytes 2.0 Absolute Monocytes 0.7 Absolute Eosinophils 0.2 Absolute Basophils 0.1 Sodium Potassium Chloride Carbon Dioxide Anion Gap BUN Creatinine Est GFR ( Amer) Est GFR (Non-Af Amer) Glucose Calcium Blood Type B POSITIVE Antibody Screen NEGATIVE 05/09/17 04:55 WBC RBC Hgb Hct MCV MCH MCHC RDW Plt Count Seg Neutrophils % Lymphocytes % Monocytes % Eosinophils % Basophils % Absolute Neutrophils Absolute Lymphocytes Absolute Monocytes Absolute Eosinophils Absolute Basophils Sodium 134.5 L Potassium 4.6 Chloride 94 L Carbon Dioxide 26 Anion Gap 15 BUN 44 H Creatinine 9.35 H Est GFR ( Amer) 7 L Est GFR (Non-Af Amer) 6 L Glucose 155 H Calcium 9.2 Blood Type Antibody Screen Impressions: Chest X-Ray 04/27/17 08:55 IMPRESSION: NO SIGNIFICANT RADIOGRAPHIC FINDING IN THE CHEST. Pelvis X-Ray 05/05/17 10:43 IMPRESSION: Postoperative changes right hip pronounced teeth. Assessment & Plan - Plan Summary Plan Summary: Patient status post right total hip arthroplasty who is progressing well with therapy. Plan on receiving 1 unit of PRBC Awaiting discharge on Wednesday after dialysis.
--- NOTE | 2017-05-09 16:32 | PDOC PROGRESS REPORT ---
Subjective Progress Note for:: 05/09/17 Subjective:: Patient resting comfortably in bed. No issues overnight. Feels better after the unit of blood. Physical Exam Vital Signs: Temp Pulse Resp BP Pulse Ox 37.1 C 84 12 141/58 H 98 05/09/17 15:16 05/09/17 15:16 05/09/17 15:16 05/09/17 15:16 05/09/17 15:16 Intake & Output 05/08/17 05/09/17 05/10/17 06:59 06:59 06:59 Intake Total 490 1835 792 Output Total 3000 0 700 Balance -2510 1835 92 Weight 101.15 kg Adult Front & Back Image: 1 - Dressing is dry clean and intact except for some spotting. Implants are grossly equal and patient neurovascular status is unchanged. Results Laboratory Results: 05/09/17 04:55 05/09/17 04:55 05/08/17 05/08/17 05/09/17 10:38 18:20 04:55 WBC 8.8 9.6 RBC 3.05 L 3.03 L Hgb 9.2 L 9.2 L Hct 27.3 L 27.2 L MCV 89 90 MCH 30.3 30.4 MCHC 33.9 33.9 RDW 15.4 H 15.2 H Plt Count 126 L 106 L Seg Neutrophils % 66.9 Lymphocytes % 22.6 Monocytes % 7.7 Eosinophils % 2.2 Basophils % 0.6 Absolute Neutrophils 5.9 Absolute Lymphocytes 2.0 Absolute Monocytes 0.7 Absolute Eosinophils 0.2 Absolute Basophils 0.1 Sodium Potassium Chloride Carbon Dioxide Anion Gap BUN Creatinine Est GFR ( Amer) Est GFR (Non-Af Amer) Glucose Calcium Blood Type B POSITIVE Antibody Screen NEGATIVE 05/09/17 04:55 WBC RBC Hgb Hct MCV MCH MCHC RDW Plt Count Seg Neutrophils % Lymphocytes % Monocytes % Eosinophils % Basophils % Absolute Neutrophils Absolute Lymphocytes Absolute Monocytes Absolute Eosinophils Absolute Basophils Sodium 134.5 L Potassium 4.6 Chloride 94 L Carbon Dioxide 26 Anion Gap 15 BUN 44 H Creatinine 9.35 H Est GFR ( Amer) 7 L Est GFR (Non-Af Amer) 6 L Glucose 155 H Calcium 9.2 Blood Type Antibody Screen Impressions: Chest X-Ray 04/27/17 08:55 IMPRESSION: NO SIGNIFICANT RADIOGRAPHIC FINDING IN THE CHEST. Pelvis X-Ray 05/05/17 10:43 IMPRESSION: Postoperative changes right hip pronounced teeth. Assessment & Plan - Plan Summary Plan Summary: 66-year-old gentleman status post right total hip arthroplasty with stable hematocrit after transfusion. Continue physical therapy. Awaiting dialysis tomorrow and discharge tomorrow.
[2017-05-09] MEDS: AMLODIPINE BESYLATE 10 MG TABLET PO SCH (17:12)
[2017-05-09] MEDS: INSULIN LISPRO 100 UNIT/ML 3 ML VIAL SUBCUT PRN (17:14)
[2017-05-09] MEDS: METOPROLOL SUCCINATE 50 MG TAB.SR.24H PO SCH (17:14)
[2017-05-09] MEDS: RIVAROXABAN 10 MG TABLET PO SCH (22:02)
[2017-05-10] MEDS ORDERED: EPOETIN ALFA INJ 20000 UNIT/1 ML VIAL (RENAL) IV PRN (05:00)
[2017-05-10 05:21] LABS: HEMATOCRIT 25.3 % (37.9-51.0); HEMOGLOBIN 8.6 g/dL (13.5-17.0); HGB HCT DIFFERENCE 0.5; MEAN CORPUSCULAR HEMOGLOBIN 30.5 pg (27.0-33.4); MEAN CORPUSCULAR HGB CONC 34.1 g/dL (32.0-36.0); MEAN CORPUSCULAR VOLUME 89 fl (80-97); RED BLOOD COUNT 2.83 10^6/uL (4.35-5.55); RED CELL DISTRIBUTION WIDTH 15.3 % (11.5-14.0)
[2017-05-10 05:35] LABS: ANION GAP 13 (5-19); BLOOD UREA NITROGEN 54 mg/dL (7-20); CALCIUM 9.1 mg/dL (8.4-10.2); CARBON DIOXIDE 29 mmol/L (22-30); CHLORIDE 92 mmol/L (98-107); CREATININE RESULT 11.08 mg/dL (0.52-1.25); GLUCOSE 142 mg/dL (75-110); POTASSIUM 5.1 mmol/L (3.6-5.0); SODIUM 133.5 mmol/L (137-145)
[2017-05-10] MEDS: LANSOPRAZOLE 30 MG TAB.RAP.DR PO SCH (06:34)
--- NOTE | 2017-05-10 06:43 | PDOC PROGRESS REPORT ---
Subjective Progress Note for:: 05/10/17 Subjective:: Patient with only minor complaints Physical Exam Vital Signs: Temp Pulse Resp BP Pulse Ox 37.0 C 83 17 140/52 H 98 05/10/17 00:00 05/10/17 00:00 05/10/17 00:00 05/10/17 00:00 05/10/17 00:00 Intake & Output 05/08/17 05/09/17 05/10/17 06:59 06:59 06:59 Intake Total 490 1835 1112 Output Total 3000 0 700 Balance -2510 1835 412 Weight 101.15 kg 101.6 kg General appearance: PRESENT: no acute distress Head exam: PRESENT: normocephalic Respiratory exam: PRESENT: unlabored Cardiovascular exam: PRESENT: RRR Vascular exam: PRESENT: normal capillary refill GI/Abdominal exam: PRESENT: soft Rectal exam: PRESENT: deferred Extremities exam: PRESENT: other - Right hip dressing with only minor old drainage which has not changed in several days. Leg lengths are equal. Distal neurovascular examination is intact. Neurological exam: PRESENT: alert, awake, oriented to person, oriented to place , oriented to time, oriented to situation, CN II-XII grossly intact. ABSENT: motor sensory deficit Psychiatric exam: PRESENT: appropriate affect, normal mood. ABSENT: homicidal ideation, suicidal ideation Skin exam: PRESENT: dry, intact, warm. ABSENT: cyanosis, rash Results Laboratory Results: 05/10/17 05:01 05/10/17 05:01 05/10/17 05/10/17 05:01 05:01 WBC 9.0 RBC 2.83 L Hgb 8.6 L Hct 25.3 L MCV 89 MCH 30.5 MCHC 34.1 RDW 15.3 H Plt Count 161 Sodium 133.5 L Potassium 5.1 H Chloride 92 L Carbon Dioxide 29 Anion Gap 13 BUN 54 H Creatinine 11.08 H Est GFR ( Amer) 6 L Est GFR (Non-Af Amer) 5 L Glucose 142 H Calcium 9.1 Impressions: Chest X-Ray 04/27/17 08:55 IMPRESSION: NO SIGNIFICANT RADIOGRAPHIC FINDING IN THE CHEST. Pelvis X-Ray 05/05/17 10:43 IMPRESSION: Postoperative changes right hip pronounced teeth. Status: Imported from PACS Assessment & Plan - Diagnosis (1) Hip joint replacement status Qualifiers: Laterality: right Qualified Code(s): Z96.641 - Presence of right artificial hip joint Is this a current diagnosis for this admission?: YesPlan: Doing well status post right hip arthroplasty. Is also doing well from a renal standpoint and is status post dialysis. He is now awaiting placement issues to be resolved. - Time Time Spent with patient: 15-24 minutes Anticipated discharge: SNF Within: Other
[2017-05-10] MEDS: SEVELAMER HCL 400 MG TABLET PO SCH ×3 (08:11→17:23)
[2017-05-10] MEDS: ONDANSETRON HCL INJ/PF 4 MG/2 ML SDV IV PRN (09:06)
[2017-05-10] MEDS: DOXAZOSIN MESYLATE 4 MG TABLET PO SCH (12:53)
[2017-05-10] MEDS: PRENATAL VITAMIN W-O CA NO5/FE FUMARATE/FA CAPSULE PO SCH (12:54)
[2017-05-10] MEDS: SENNOSIDES/DOCUSATE 8.6-50 MG 1 EACH TABLET PO SCH ×2 (12:55→17:23)
[2017-05-10] MEDS: GABAPENTIN 300 MG CAPSULE PO SCH ×2 (12:55→22:15)
[2017-05-10] MEDS: AMMONIUM LACTATE 12% LOTION 225GM BOTTLE TP SCH (12:56)
[2017-05-10] MEDS: OXYCODONE HCL IR 5 MG TABLET PO PRN (14:22)
[2017-05-10] MEDS: METOPROLOL SUCCINATE 50 MG TAB.SR.24H PO SCH (17:21)
[2017-05-10] MEDS: AMLODIPINE BESYLATE 10 MG TABLET PO SCH (17:22)
[2017-05-10] MEDS: INSULIN LISPRO 100 UNIT/ML 3 ML VIAL SUBCUT PRN ×2 (17:49→22:45)
[2017-05-10] MEDS: ONDANSETRON 4 MG TAB.RAPDIS PO PRN (20:04)
[2017-05-10] MEDS: RIVAROXABAN 10 MG TABLET PO SCH (22:14)
[2017-05-11 05:51] LABS: HEMATOCRIT 25.2 % (37.9-51.0); HEMOGLOBIN 8.7 g/dL (13.5-17.0); HGB HCT DIFFERENCE 0.9; MEAN CORPUSCULAR HEMOGLOBIN 30.8 pg (27.0-33.4); MEAN CORPUSCULAR HGB CONC 34.5 g/dL (32.0-36.0); MEAN CORPUSCULAR VOLUME 90 fl (80-97); RED BLOOD COUNT 2.82 10^6/uL (4.35-5.55); RED CELL DISTRIBUTION WIDTH 15.5 % (11.5-14.0); WHITE BLOOD COUNT 8.8 10^3/uL (4.0-10.5)
[2017-05-11 06:02] LABS: ANION GAP 10 (5-19); BLOOD UREA NITROGEN 36 mg/dL (7-20); CARBON DIOXIDE 30 mmol/L (22-30); CHLORIDE 96 mmol/L (98-107); CREATININE RESULT 7.59 mg/dL (0.52-1.25); GLUCOSE 162 mg/dL (75-110); POTASSIUM 4.9 mmol/L (3.6-5.0); SODIUM 136.3 mmol/L (137-145)
[2017-05-11] MEDS: LANSOPRAZOLE 30 MG TAB.RAP.DR PO SCH (06:13)
[2017-05-11] MEDS: SEVELAMER HCL 400 MG TABLET PO SCH ×3 (10:19→17:52)
[2017-05-11] MEDS: SENNOSIDES/DOCUSATE 8.6-50 MG 1 EACH TABLET PO SCH ×2 (10:20→17:53)
[2017-05-11] MEDS: PRENATAL VITAMIN W-O CA NO5/FE FUMARATE/FA CAPSULE PO SCH (10:20)
[2017-05-11] MEDS: GABAPENTIN 300 MG CAPSULE PO SCH ×2 (10:20→21:35)
[2017-05-11] MEDS: DOXAZOSIN MESYLATE 4 MG TABLET PO SCH (10:23)
[2017-05-11] MEDS: AMMONIUM LACTATE 12% LOTION 225GM BOTTLE TP SCH (10:24)
[2017-05-11] MEDS: ONDANSETRON HCL INJ/PF 4 MG/2 ML SDV IV PRN (12:03)
[2017-05-11] MEDS: INSULIN LISPRO 100 UNIT/ML 3 ML VIAL SUBCUT PRN ×2 (12:24→17:49)
--- NOTE | 2017-05-11 12:38 | PDOC PROGRESS REPORT ---
Subjective Progress Note for:: 05/11/17 Subjective:: In the hospital today. Doing well. No complaints. Awaiting rehab placement. Physical Exam Vital Signs: Temp Pulse Resp BP Pulse Ox 98.6 F 82 18 131/59 H 97 05/11/17 11:20 05/11/17 11:20 05/11/17 11:20 05/11/17 11:20 05/11/17 11:20 Intake & Output 05/10/17 05/11/17 05/12/17 06:59 06:59 06:59 Intake Total 1112 1440 Output Total 700 2100 Balance 412 -660 Weight 101.6 kg 113.6 kg General appearance: PRESENT: no acute distress Respiratory exam: PRESENT: clear to auscultation holger, stridor. ABSENT: crackles , rhonchi Cardiovascular exam: PRESENT: +S1, +S2 GI/Abdominal exam: PRESENT: normal bowel sounds, soft. ABSENT: organomegaly, tenderness Extremities exam: ABSENT: pedal edema Results Laboratory Results: 05/11/17 05:30 05/11/17 05:30 05/11/17 05/11/17 05/11/17 05:30 05:30 05:30 WBC 8.8 RBC 2.82 L Hgb 8.7 L Hct 25.2 L MCV 90 MCH 30.8 MCHC 34.5 RDW 15.5 H Plt Count 171 Retic Count (auto) 2.44 Absolute Retic 0.070 Sodium 136.3 L Potassium 4.9 Chloride 96 L Carbon Dioxide 30 Anion Gap 10 BUN 36 H Creatinine 7.59 H Est GFR ( Amer) 9 L Est GFR (Non-Af Amer) 7 L Glucose 162 H Calcium 9.0 Impressions: Chest X-Ray 04/27/17 08:55 IMPRESSION: NO SIGNIFICANT RADIOGRAPHIC FINDING IN THE CHEST. Pelvis X-Ray 05/05/17 10:43 IMPRESSION: Postoperative changes right hip pronounced teeth. Assessment & Plan - Diagnosis (1) ESRD (end stage renal disease) on dialysis Plan: We will plan for dialysis in the morning in case patient is here. Since he is also dropping hemoglobin I am going to order iron studies and needs to see if he needs iron replacements besides the erythropoietin. (2) Diabetes 1.5, managed as type 2 Plan: Controlled. (3) Hypertension Plan: Stable. (4) Hip joint replacement status Qualifiers: Laterality: right Qualified Code(s): Z96.641 - Presence of right artificial hip joint Is this a current diagnosis for this admission?: YesPlan: Doing well post r hip arthroplasty. (5) Anemia Qualifiers: Anemia type: unspecified type Qualified Code(s): D64.9 - Anemia, unspecified Plan: Get iron studies. Will see if he needs to be iron replete. Monitor for GI bleeds given the fact he is on Xarelto. Is also on Prevacid. Adjust erythropoietin. No indications for transfusions of the moment. See how with his labs are tomorrow. Patient asymptomatic.
[2017-05-11] MEDS: SEVELAMER HCL 400 MG TABLET PO PRN (14:43)
[2017-05-11] MEDS: AMLODIPINE BESYLATE 10 MG TABLET PO SCH (17:53)
[2017-05-11] MEDS: METOPROLOL SUCCINATE 50 MG TAB.SR.24H PO SCH (17:53)
[2017-05-11] MEDS: OXYCODONE HCL IR 5 MG TABLET PO PRN (21:35)
[2017-05-11] MEDS: RIVAROXABAN 10 MG TABLET PO SCH (21:35)
[2017-05-12] MEDS: LANSOPRAZOLE 30 MG TAB.RAP.DR PO SCH (06:07)
[2017-05-12 06:23] LABS: HEMATOCRIT 25.1 % (37.9-51.0); HEMOGLOBIN 8.4 g/dL (13.5-17.0); HGB HCT DIFFERENCE 0.1; MEAN CORPUSCULAR HEMOGLOBIN 29.8 pg (27.0-33.4); MEAN CORPUSCULAR HGB CONC 33.5 g/dL (32.0-36.0); MEAN CORPUSCULAR VOLUME 89 fl (80-97); RED BLOOD COUNT 2.83 10^6/uL (4.35-5.55); RED CELL DISTRIBUTION WIDTH 15.5 % (11.5-14.0); WHITE BLOOD COUNT 8.9 10^3/uL (4.0-10.5)
[2017-05-12 06:53] LABS: ANION GAP 15 (5-19); BLOOD UREA NITROGEN 47 mg/dL (7-20); CALCIUM 8.9 mg/dL (8.4-10.2); CARBON DIOXIDE 29 mmol/L (22-30); CHLORIDE 90 mmol/L (98-107); GLUCOSE 199 mg/dL (75-110); POTASSIUM 4.8 mmol/L (3.6-5.0); SODIUM 133.8 mmol/L (137-145)
[2017-05-12] MEDS: SEVELAMER HCL 400 MG TABLET PO SCH ×3 (07:36→18:03)
[2017-05-12] MEDS: INSULIN LISPRO 100 UNIT/ML 3 ML VIAL SUBCUT PRN ×4 (08:11→22:27)
[2017-05-12] MEDS ORDERED: EPOETIN ALFA INJ 20000 UNIT/1 ML VIAL (RENAL) IV PRN (10:27)
[2017-05-12] MEDS: SENNOSIDES/DOCUSATE 8.6-50 MG 1 EACH TABLET PO SCH ×2 (13:27→18:11)
[2017-05-12] MEDS: PRENATAL VITAMIN W-O CA NO5/FE FUMARATE/FA CAPSULE PO SCH (13:28)
[2017-05-12] MEDS: GABAPENTIN 300 MG CAPSULE PO SCH ×2 (13:28→22:27)
[2017-05-12] MEDS: OXYCODONE HCL IR 5 MG TABLET PO PRN ×2 (13:51→19:41)
[2017-05-12] MEDS: AMMONIUM LACTATE 12% LOTION 225GM BOTTLE TP SCH (13:51)
[2017-05-12] MEDS: DOXAZOSIN MESYLATE 4 MG TABLET PO SCH (13:51)
--- NOTE | 2017-05-12 16:05 | PDOC PROGRESS REPORT ---
Subjective Progress Note for:: 05/12/17 Subjective:: Patient seen on dialysis this morning. Undergoing dialysis without any issues. Vital signs are stable. Orders were discussed with treating nurse. Physical Exam Vital Signs: Temp Pulse Resp BP Pulse Ox 98.6 F 87 17 146/56 H 96 05/12/17 07:59 05/12/17 07:59 05/12/17 07:59 05/12/17 07:59 05/12/17 07:59 Intake & Output 05/11/17 05/12/17 05/13/17 06:59 06:59 06:59 Intake Total 1440 1040 Output Total 2100 700 1700 Balance -660 340 -1700 Weight 113.6 kg 113.9 kg General appearance: PRESENT: no acute distress Respiratory exam: PRESENT: clear to auscultation holger. ABSENT: crackles, rhonchi Cardiovascular exam: PRESENT: +S1, +S2 GI/Abdominal exam: PRESENT: normal bowel sounds, soft. ABSENT: organomegaly, tenderness Neurological exam: PRESENT: alert, awake, oriented to person, oriented to place Results Laboratory Results: 05/12/17 05:36 05/12/17 05:36 05/11/17 05/12/17 05/12/17 05:30 05:36 05:36 WBC 8.9 RBC 2.83 L Hgb 8.4 L Hct 25.1 L MCV 89 MCH 29.8 MCHC 33.5 RDW 15.5 H Plt Count 190 Sodium 133.8 L Potassium 4.8 Chloride 90 L Carbon Dioxide 29 Anion Gap 15 BUN 47 H Creatinine 9.40 H Est GFR ( Amer) 7 L Est GFR (Non-Af Amer) 6 L Glucose 199 H Calcium 8.9 Transferrin 104 L Impressions: Chest X-Ray 04/27/17 08:55 IMPRESSION: NO SIGNIFICANT RADIOGRAPHIC FINDING IN THE CHEST. Pelvis X-Ray 05/05/17 10:43 IMPRESSION: Postoperative changes right hip pronounced teeth. Assessment & Plan - Diagnosis (1) ESRD (end stage renal disease) on dialysis Plan: Undergoing dialysis without any issues.Discuss orders with the treating nurse. Procedure is being supervised to ensure a safe and smooth procedure. Vital signs are stable. Plan to remove 1-2 L as tolerated. (2) Diabetes 1.5, managed as type 2 Plan: Controlled. (3) Hypertension Plan: Stable. (4) Hip joint replacement status Qualifiers: Laterality: right Qualified Code(s): Z96.641 - Presence of right artificial hip joint Is this a current diagnosis for this admission?: YesPlan: Doing well post r hip arthroplasty. (5) Anemia Qualifiers: Anemia type: unspecified type Qualified Code(s): D64.9 - Anemia, unspecified Plan: Iron studies adequate. Adjust erythropoietin. Hemoglobin stable.
[2017-05-12] MEDS: SEVELAMER HCL 400 MG TABLET PO PRN (18:04)
[2017-05-12] MEDS: AMLODIPINE BESYLATE 10 MG TABLET PO SCH (18:05)
[2017-05-12] MEDS: METOPROLOL SUCCINATE 50 MG TAB.SR.24H PO SCH (18:06)
[2017-05-12] MEDS: RIVAROXABAN 10 MG TABLET PO SCH (22:27)
[2017-05-13] MEDS: LANSOPRAZOLE 30 MG TAB.RAP.DR PO SCH (05:58)
[2017-05-13] MEDS: OXYCODONE HCL IR 5 MG TABLET PO PRN ×2 (05:58→11:46)
[2017-05-13] MEDS: ONDANSETRON 4 MG TAB.RAPDIS PO PRN (06:02)
[2017-05-13] MEDS: SEVELAMER HCL 400 MG TABLET PO SCH ×2 (07:39→11:45)
--- NOTE | 2017-05-13 09:27 | PDOC TRANSFER SUMMARY ---
General - Admit/Disc Date/PCP Admission Date/Primary Care Provider: 05/05/17 06:55 KAREN HEARD NP Discharge Date: 05/13/17 - Discharge Diagnosis (1) Hip joint replacement status Is this a current diagnosis for this admission?: Yes - Additional Information Resuscitation Status: Full Code Home Medications: Amlodipine Besylate [Norvasc 10 mg Tablet] 10 mg PO QPM 05/05/17 Ammonium Lactate 1 applic TOP DAILY 05/05/17 Aspirin/Caffeine [Lina Back & Body Caplet] 1 tab PO QPM 05/05/17 Doxazosin Mesylate [Cardura 4 mg Tablet] 4 mg PO DAILY 05/05/17 Esomeprazole Magnesium [Nexium] 40 mg PO QPM 05/05/17 Fluticasone Propionate [Allergy Relief] 2 spray NASL DAILYP PRN 05/05/17 Folic Acid/Vitamin B Comp W-C [Nephrocaps Multiple Vitamin Capsule] 1 cap PO DAILY 05/05/17 Gabapentin [Neurontin 300 mg Capsule] 300 mg PO Q12 05/05/17 Insulin Glargine,Hum.rec.anlog [Lantus] 10 unit SUBCUT QPM PRN 05/05/17 Metoprolol Succinate [Toprol XL 200 mg Tablet] 200 mg PO QPM 05/05/17 Mirabegron [Myrbetriq] 50 mg PO QPM 05/05/17 Multivitamin [Daily Multiple Vitamin] 1 tab PO DAILY 05/05/17 Polyvinyl Alcohol [Artificial Tears] 1 drop OU TID 05/05/17 Sevelamer Carbonate [Renvela] 1,600 mg PO MEALS 05/05/17 Sevelamer Carbonate [Renvela] 800 mg PO PRN PRN 05/05/17 Sildenafil Citrate [Viagra] 100 mg PO PRN PRN 05/05/17 Zolpidem Tartrate [Ambien] 10 mg PO HSP PRN 05/05/17 History of Present Illness Admission Date/PCP: 05/05/17 06:55 KAREN HEARD NP History of Present Illness: 66 yo dialysis dependent black male with progressive R hip pain and 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 Mobilized with PT. Dialysis per nephrology Physical Exam Vital Signs: Temp Pulse Resp BP Pulse Ox 36.9 C 86 18 125/51 L 100 05/13/17 08:00 05/13/17 08:00 05/13/17 08:00 05/13/17 08:00 05/13/17 08:00 Intake & Output 05/12/17 05/13/17 05/14/17 06:59 06:59 06:59 Intake Total 1040 830 0 Output Total 700 2050 Balance 340 -1220 0 Weight 113.9 kg 113.8 kg General appearance: PRESENT: no acute distress Head exam: PRESENT: normocephalic Respiratory exam: PRESENT: unlabored Cardiovascular exam: PRESENT: RRR Pulses: PRESENT: +1 pedal pulses bilateral Vascular exam: PRESENT: normal capillary refill GI/Abdominal exam: PRESENT: soft Rectal exam: PRESENT: deferred Musculoskeletal exam: PRESENT: other - R hip dressing dry and intact. Leg length equal, NV intact Neurological exam: PRESENT: alert, awake, oriented to person, oriented to place , oriented to time, oriented to situation. ABSENT: motor sensory deficit Psychiatric exam: PRESENT: appropriate affect, normal mood. ABSENT: homicidal ideation, suicidal ideation Skin exam: PRESENT: dry, intact, warm. ABSENT: cyanosis, rash Results Laboratory Results: 05/12/17 05:36 05/12/17 05:36 Impressions: Chest X-Ray 04/27/17 08:55 IMPRESSION: NO SIGNIFICANT RADIOGRAPHIC FINDING IN THE CHEST. Pelvis X-Ray 05/05/17 10:43 IMPRESSION: Postoperative changes right hip pronounced teeth. Status: Imported from PACS Transfer Plan - Disposition Transfer Plan: Patient to be transferred to SNF for progressive WBAT. return to [facility] in two weeks for staple removal
[2017-05-13] MEDS: GABAPENTIN 300 MG CAPSULE PO SCH (10:15)
[2017-05-13] MEDS: PRENATAL VITAMIN W-O CA NO5/FE FUMARATE/FA CAPSULE PO SCH (10:15)
[2017-05-13] MEDS: SENNOSIDES/DOCUSATE 8.6-50 MG 1 EACH TABLET PO SCH (10:15)
[2017-05-13] MEDS: DOXAZOSIN MESYLATE 4 MG TABLET PO SCH (10:15)
[2017-05-13] MEDS: AMMONIUM LACTATE 12% LOTION 225GM BOTTLE TP SCH (10:17)
[2017-05-13] MEDS: ACETAMINOPHEN 325 MG TABLET PO PRN (10:21)
[2017-05-13] MEDS: INSULIN LISPRO 100 UNIT/ML 3 ML VIAL SUBCUT PRN (13:37)
[2017-05-13 17:47] VITALS: BP 131/55
[2020-05-10] MEDS ORDERED: BISACODYL 10 MG SUPP.RECT PR PRN (10:00)
== END 2017-05-13 17:53 | DRG 469 ==
LOC: INOR 06:55 → 4S 12:07
PROVIDERS: ADMIT Orthopaedic Surgery; ATTEND Orthopaedic Surgery
PROC: 0SR902Z Replacement of Right Hip Joint with Metal on Polyethylene Synthetic Substitute, Open Approach (ICD-10-PCS; principal; 2017-05-05 09:00)
PROC: 5A1D60Z (ICD-10-PCS; 2017-05-07)
PROC: 30233N1 Transfusion of Nonautologous Red Blood Cells into Peripheral Vein, Percutaneous Approach (ICD-10-PCS; 2017-05-08)
DX: M16.11 Unilateral primary osteoarthritis, right hip (principal); N18.6 End stage renal disease; I12.0 Hypertensive chronic kidney disease with stage 5 chronic kidney disease or end stage renal disease; D63.1 Anemia in chronic kidney disease; E11.22 Type 2 diabetes mellitus with diabetic chronic kidney disease; G62.9 Polyneuropathy, unspecified; F17.210 Nicotine dependence, cigarettes, uncomplicated; E11.43 Type 2 diabetes mellitus with diabetic autonomic (poly)neuropathy; K31.84 Gastroparesis; Z79.4 Long term (current) use of insulin; Z99.2 Dependence on renal dialysis; Z88.0 Allergy status to penicillin
CPT/HCPCS: 01214; 36415; 36430; 71020; 72170; 80048; 81001; 82607; 82728; 82746; 82962; 83036; 83540; 83550; 84132; 84466; 85025; 85027; 85045; 86850; 86900; 86901; 86920; 88304; 88311; 93005; 93010; 94799; C1713; C9290; J1170; J1741; J1815; J1940; J2250; J2405; J2704; J2765; J3010; J3370; J3490; J7050; J7060; P9016; Q4081; S0119

== ENCOUNTER → 2019-06-27 | Outpatient (CLI) | payer MEDICARE ==
[2019-06-27 12:19] LABS: ABSOLUTE BASOPHILS # (AUTO) 0.1 10^3/uL (0.0-0.2); ABSOLUTE EOSINOPHILS # (AUTO) 0.6 10^3/uL (0.0-0.6); ABSOLUTE LYMPHOCYTES (AUTO) 1.9 10^3/uL (0.5-4.7); ABSOLUTE MONOCYTES (AUTO) 0.5 10^3/uL (0.1-1.4); ABSOLUTE NEUT (AUTO) 4.1 10^3/uL (1.7-8.2); BASOPHILS % (AUTO) 1.3 % (0-2); EOSINOPHILS % (AUTO) 8.4 % (0-6); HEMATOCRIT 36.2 % (37.9-51.0); HEMOGLOBIN 12.1 g/dL (13.5-17.0); MEAN CORPUSCULAR HEMOGLOBIN 28.7 pg (27.0-33.4); MEAN CORPUSCULAR HGB CONC 33.3 g/dL (32.0-36.0); MEAN CORPUSCULAR VOLUME 86 fl (80-97); MONOCYTES % (AUTO) 7.6 % (3-13); PLATELET COUNT 159 10^3/uL (150-450); RED CELL DISTRIBUTION WIDTH 17.4 % (11.5-14.0); SEGMENTED NEUTROPHILS % (AUTO) 56.7 % (42-78); TOTAL CELLS COUNTED % (AUTO) 100 %; WHITE BLOOD COUNT 7.2 10^3/uL (4.0-10.5)
[2019-06-27 12:45] LABS: ANION GAP 14 (5-19); BLOOD UREA NITROGEN 34 mg/dL (7-20); CALCIUM 11.5 mg/dL (8.4-10.2); CARBON DIOXIDE 35 mmol/L (22-30); CHLORIDE 94 mmol/L (98-107); GLUCOSE 181 mg/dL (75-110); POTASSIUM 4.3 mmol/L (3.6-5.0)
[2019-06-27 12:47] LABS: C-REACTIVE PROTEIN < 5.0 mg/L (<10.0)
[2019-06-27 13:00] LABS: ERYTHROCYTE SEDIMENTATION RATE 31 mm/hr (0-20)
== END ==
LOC: OD 11:31
PROVIDERS: ATTEND Orthopaedic Surgery
DX: T84.50XA Infection and inflammatory reaction due to unspecified internal joint prosthesis, initial encounter (principal)
CPT/HCPCS: 36415; 80048; 85025; 85652; 86140